=== PATIENT | male | born 1990 ===

== ENCOUNTER 2021-03-04 12:49 | Emergency (ER) | payer SELFPAY ==
--- NOTE | 2021-03-04 14:00 | CR ---
PROCEDURE INFORMATION: Exam: XR Left Ankle Exam date and time: 03/04/2021 1:41 PM Age: 30 years old Clinical indication: Pain; Ankle; Left; Additional info: Twisted left ankle TECHNIQUE: Imaging protocol: XR Left ankle. Views: 3 or more views. COMPARISON: No relevant prior studies available. FINDINGS: Bones/joints: Multiple views of the left ankle demonstrate no evidence for fracture. The ankle mortise is intact. Subtalar joints are in anatomic alignment. Soft tissues: There is moderate grade lateral soft tissue swelling. IMPRESSION: Lateral soft tissue swelling without acute osseous abnormality identified.
--- NOTE | 2021-03-04 14:17 | EDM.PDOC ---
ED HPI GENERAL MEDICAL PROBLEM - General Chief Complaint: Lower Extremity Injury/Pain Stated Complaint: [id number] LEFT SPRAINED ANKLE Time Seen by Provider: 03/04/21 15:16 Source of Information: Reports: Patient, RN, RN Notes Reviewed History Limitations: Reports: No Limitations - History of Present Illness INITIAL COMMENTS - FREE TEXT/NARRATIVE: Nav is a 30 y/o male who presents to the ED via personal vehicle with complaints of left lateral ankle pain. The patient states he was walking to the bathroom at approximately 0730 this morning when he inwardly rotated his ankle. He denies falling onto the extremity. He denies loss of motor or sensory function. He has taken no medication or undertaken any supportive cares. left ankle Pain Score (Numeric/FACES): 5 - Related Data Allergies Allergy/AdvReac Type Severity Reaction Status Date / Time No Known Allergies Allergy Verified 03/04/21 13:41 Home Meds: Home Meds Fexofenadine/Pseudoephedrine [Joi-D 12 Hour Tablet] 1 tab PO DAILY 01/03/14 [History] Review of Systems - Review of Systems Review Of Systems: Comprehensive ROS is negative, except as noted in HPI. ED EXAM, GENERAL - Physical Exam Exam: See Below Exam Limited By: No Limitations General Appearance: Alert, WD/WN, No Apparent Distress Eye Exam: Bilateral Eye: EOMI, Normal Inspection, PERRL (3mm) Ears: Normal External Exam, Hearing Grossly Normal Ear Exam: Bilateral Ear: Auricle Normal, Canal Normal Nose: Normal Inspection, Normal Mucosa, No Blood Throat/Mouth: Normal Inspection, Normal Oropharynx, Normal Voice, No Airway Co mpromise Head: Atraumatic, Normocephalic Neck: Normal Inspection, Supple, Non-Tender, Full Range of Motion. No: Lymphadenopathy (L), Lymphadenopathy (R) Respiratory/Chest: No Respiratory Distress, Lungs Clear, Normal Breath Sounds, No Accessory Muscle Use, Chest Non-Tender Cardiovascular: Normal Peripheral Pulses, Regular Rate, Rhythm, No Edema, No Gallop, No JVD, No Murmur, No Rub Peripheral Pulses: 2+: Radial (L), Radial (R), Dorsalis Pedis (L), Dorsalis Pedis (R) GI/Abdominal: Normal Bowel Sounds, Soft, Non-Tender, No Distention, No Abnormal Bruit, No Mass, Pelvis Stable (Male) Exam: Deferred Rectal (Males) Exam: Deferred Back Exam: Normal Inspection, Full Range of Motion Extremities: Normal Range of Motion, Normal Capillary Refill, Joint Swelling (To left lateral ankle), Leg Pain (Left lateral pain). No: Increased Warmth, Mottled, Pallor, Redness Neurological: Alert, Oriented, CN II-XII Intact, No Motor/Sensory Deficits, Abnormal Gait (Limping gait) Psychiatric: Normal Affect, Normal Mood Skin Exam: Warm, Dry, Intact, Normal Color, No Rash. No: Cyanosis, Ecchymosis, Erythema, Jaundice, Mottled, Pallor, Petechiae Lymphatic: No Adenopathy Course - Vital Signs Last Recorded V/S: Last Vital Signs Temp 97.5 F 03/04/21 13:37 Pulse 91 03/04/21 13:37 Resp 20 03/04/21 13:37 BP 132/68 03/04/21 13:37 Pulse Ox 97 03/04/21 13:37 - Radiology Interpretation Free Text/Narrative:: [facility] Final Radiology Report Call: [phone] assistance Online chat: [email or web address] Name: NAV CROFT Age: 30Years M Date: 03/04/2021 SSN: -- : [id number] Study: CR ANKLE MIN 3V LT Requesting Physician: Annette Greco Images: 3 Addl Studies: Provided Clinical History: twisted left ankle Contrast: Contrast Medium: Contrast Amount: Contrast Method: CONFIDENTIALITY STATEMENT This report is intended only for use by the referring physician, and only in accordance with law. If you received this in error, call [phone]. Page 1 of 1 PROCEDURE INFORMATION: Exam: XR Left Ankle Exam date and time: 03/04/2021 1:41 PM Age: 30 years old Clinical indication: Pain; Ankle; Left; Additional info: Twisted left ankle TECHNIQUE: Imaging protocol: XR Left ankle. Views: 3 or more views. COMPARISON: No relevant prior studies available. FINDINGS: Bones/joints: Multiple views of the left ankle demonstrate no evidence for fracture. The ankle mortise is intact. Subtalar joints are in anatomic alignment. Soft tissues: There is moderate grade lateral soft tissue swelling. IMPRESSION: Lateral soft tissue swelling without acute osseous abnormality identified. Thank you for allowing us to participate in the care of your patient. Dictated and Authenticated by: Chandan Ribera MD 03/04/2021 2:00 PM Central Time ([place] & [place]) - Re-Assessments/Exams Free Text/Narrative Re-Assessment/Exam: 03/04/21 Xray of left ankle. Findings of examination and imaging reviewed with patient. Discussed supportive cares for left lateral ankle sprain. Red flag signs and symptoms which would warrant reevaluation reviewed. Patient verbalized understanding and agreement with the plan of care. Departure - Departure Time of Disposition: 15:23 Disposition: Home, Self-Care 01 Condition: Good Clinical Impression: Left ankle sprain Qualifiers: Encounter type: initial encounter Involved ligament of ankle: unspecified ligament Qualified Code(s): S93.402A - Sprain of unspecified ligament of left ankle, initial encounter - Discharge Information *PRESCRIPTION DRUG MONITORING PROGRAM REVIEWED*: Not Applicable *COPY OF PRESCRIPTION DRUG MONITORING REPORT IN PATIENT [place]: Not Applicable Instructions: Ankle Sprain Referrals: PCP,None [Primary Care Provider] - Forms: ED Department Discharge Additional Instructions: 1.) You may take ibuprofen (Advil/Motrin) 400mg every six hours, as pain and swelling persists. You may also take acetaminophen (Tylenol) 650mg every six hours, as pain persists. You may stagger these medications so you are receiving a dose every three hours. 2.) You may apply ice to the affected area, as swelling persists; 20 minutes on every hour. 3.) Keep left ankle elevated while at rest. 4.) You may apply a compression sleeve to the ankle for stability, comfort, and to expedite reduction in swelling. 5.) Follow up with your primary care provider regarding today's visit. Sepsis Event Note (ED) - Evaluation Sepsis Screening Result: No Definite Risk
== END 2021-03-04 15:32 | disposition home or self-care (01) ==
LOC: DL.ED 12:49
DX: S93.402A Sprain of unspecified ligament of left ankle, initial encounter (principal); X50.1XXA Overexertion from prolonged static or awkward postures, initial encounter; Y92.002 Bathroom of unspecified non-institutional (private) residence as the place of occurrence of the external cause
CPT/HCPCS: 73610-LT; 99283-25